=== PATIENT | female | born 1955 | race Caucasian/White ===

== ENCOUNTER → 2017-12-29 | Outpatient (CLI) | payer OTHER ==
[~2017-12-29] MED LIST: APIX2.5T PO; CYCL10TA PO; DICL75TA PO; FOLI800T PO; HYDR-3580 PO; METH2.5T PO; MILK500C2 PO; MULT-65 PO; OMEP20TA93 PO; VITA2000 PO
[2017-12-29 09:24] LABS: AUTOMATED NEUTROPHIL # 4.2 TH/MM3 (1.8-7.7); BASOPHIL % 0.5 % (0.0-2.0); EOSINOPHIL # 0.1 TH/MM3 (0-0.4); EOSINOPHIL % 1.9 % (0.0-4.0); HEMATOCRIT 43.9 % (35.0-46.0); HEMOGLOBIN 14.7 GM/DL (11.6-15.3); LYMPH % 23.6 % (9.0-44.0); LYMPHOCYTE # 1.5 TH/MM3 (1.0-4.8); MEAN CELL VOLUME 102.5 FL (80.0-100.0); MEAN CORPUSCULAR HEMOGLOBIN 34.3 PG (27.0-34.0); MEAN CORPUSCULAR HGB CONC 33.4 % (32.0-36.0); MEAN PLATELET VOLUME 8.3 FL (7.0-11.0); MONO % 7.4 % (0.0-8.0); MONOCYTE # 0.5 TH/MM3 (0-0.9); NEUT % 66.6 % (16.0-70.0); PLATELET COUNT 241 TH/MM3 (150-450); RED BLOOD COUNT 4.28 MIL/MM3 (4.00-5.30); RED CELL DISTRIBUTION WIDTH 14.8 % (11.6-17.2); WHITE BLOOD COUNT 6.4 TH/MM3 (4.0-11.0)
[2017-12-29 09:39] LABS: BILIRUBIN, URINE NEG (NEG); BLOOD, URINE NEG (NEG); GLUCOSE,URINE NEG (NEG); KETONE, URINE NEG (NEG); NITRITE,URINE NEG (NEG); PH, URINE 5.5 (5.0-8.5); SQUAMOUS EPITHELIAL CELL URINE 1 /hpf (0-5); URINE COLOR LIGHT-YELLOW (YELLW/STRAW); URINE LEUKOCYTE ESTERASE MOD (NEG); WHITE BLOOD CELL CLUMPS RARE
[2017-12-29 09:46] LABS: ALBUMIN 3.9 GM/DL (3.4-5.0); AST (GOT) 23 U/L (15-37); BICARBONATE 26.6 MEQ/L (21.0-32.0); BLOOD UREA NITROGEN 12 MG/DL (7-18); CALCIUM 9.1 MG/DL (8.5-10.1); CHLORIDE 103 MEQ/L (98-107); GLOMERULAR FILTRATION RATE 72 ML/MIN (>89); GLUCOSE,FASTING 90 MG/DL (74-99); SODIUM (NA) 138 MEQ/L (136-145)
[2017-12-29 09:47] LABS: ALT (GPT) 38 U/L (10-53)
[2017-12-29 09:49] LABS: ALKALINE PHOSPHATASE 81 U/L (45-117); TOTAL BILIRUBIN ADULT 0.6 MG/DL (0.2-1.0); TOTAL PROTEIN 7.4 GM/DL (6.4-8.2)
--- NOTE | 2017-12-30 16:17 | EKG ---
Date Performed: 12/29/2017 Time Performed: 08:29:19 PTAGE: 62 years EKG: Sinus rhythm WITH SINUS ARRHYTHMIA NORMAL ECG NO PREVIOUS TRACING DOCTOR: Vikash Mohan Interpretating Date/Time 12/30/2017 16:15:40
== END ==
LOC: CPRE 08:08
PROVIDERS: ATTEND Surgery
DX: Z01.810 Encounter for preprocedural cardiovascular examination (principal); Z01.812 Encounter for preprocedural laboratory examination; M79.609 Pain in unspecified limb; R82.90 Unspecified abnormal findings in urine
CPT/HCPCS: 36415; 80053; 81001; 85025; 85610; 85730; 87086; 93005

== ENCOUNTER 2018-01-05 05:38 | Observation (INO) | payer OTHER ==
--- NOTE | 2017-12-31 14:48 | MH ---
cc: Darleen Reyes MD DATE OF ADMISSION: 01/05/2018 ADMITTING DIAGNOSIS: Osteoarthritic degeneration, right knee. REASON FOR ADMISSION: Now being admitted for right total knee arthroplasty. HISTORY OF PRESENT ILLNESS: This pleasant 62-year-old female is being admitted today for right total knee arthroplasty due to severe painful osteoarthritic degeneration, right knee. OTHER PAST HISTORY/MEDICATIONS: She has a history of sciatica and back pain, rheumatoid arthritis for which she takes methotrexate. She was taking diclofenac, stopped before surgery, also Folic acid 1 mg a day. PREVIOUS SURGERIES: , tonsillectomy. REVIEW OF SYSTEMS: Noncontributory. FAMILY HISTORY: Noncontributory. SOCIAL HISTORY: She does smoke cigarettes and drinks occasional alcohol. ALLERGIES: NO KNOWN ALLERGIES. PHYSICAL EXAMINATION: GENERAL: I find a 62-year-old female, well-developed, well-nourished, oriented x3, complaining of pain in her right knee. VITAL SIGNS: Blood pressure 140/82, pulse 90 and regular, respirations 16, temperature 98.1, pulse oximetry 98% on room air. HEENT: Eyes: PERRLA, EOMI. Ears, nose and mouth: Clear. NECK: Supple. LUNGS: Clear. HEART: Regular rate. ABDOMEN: Soft, positive bowel sounds, nontender. EXTREMITIES: Reveal her right knee to be tender with crepitus on range of motion. Neurovascularly intact to her toes. IMPRESSION AT THIS TIME; Severe painful osteoarthritic degeneration, right knee. PLAN: Admission right total knee arthroplasty today. The patient was given prescription for postop pain anticoagulation control in the office. She understands she is to use Hibiclens scrub and Bactroban preoperatively. Plans on going to a rehab center after surgical stay in the hospital. MD NEVIN Nair/SAMANTHA , 02:27 PM , 02:45 PM
[~2018-01-05] VITALS: Ht 166.4 cm; Wt 94.5 kg
[~2018-01-05 05:38] MED LIST changes: -APIX2.5T PO; -CYCL10TA PO; -HYDR-3580 PO
[2018-01-05] MEDS ORDERED: BUPIVACAINE LIPOSOME PF 1.3% 20 ML VIAL ONE (06:10)
[2018-01-05] MEDS ORDERED: MIDAZOLAM HCL 5 MG/5 ML VIAL ONE (06:11)
[2018-01-05] MEDS ORDERED: LIDOCAINE HCL 1% PF 5 ML AMPULE ONE (06:12)
[2018-01-05] MEDS ORDERED: POVIDONE IODINE 5% (ANTISEPSIS KIT) 4 APPLICATIONS EACH NARE PRN (06:15)
[2018-01-05] MEDS ORDERED: CHLORHEXIDINE GLUCONATE 2 % 1 PACK (2 CLOTHS) TOPICAL PRN (06:15)
[2018-01-05] MEDS ORDERED: METOPROLOL TARTRATE 25 MG TAB PO PRN (06:15)
[2018-01-05] MEDS ORDERED: LACTATED RINGER'S 1000 ML IV PRN (06:15)
[2018-01-05] MEDS ORDERED: SODIUM CHLORID 0.9% 500 ML IV PRN (06:15)
[2018-01-05] MEDS ORDERED: VANCOMYCIN 1000 MG/NS 250 ML (for <70 kg) IV SCH ×2 (06:30)
[2018-01-05] MEDS ORDERED: CHLORHEXIDINE GLUCONATE 4% SOLN 120 ML BTL TOPICAL SCH (06:30)
[2018-01-05] MEDS ORDERED: VANCOMYCIN 1 GM/200 ML INJ 200 ML IV SCH (06:30)
[2018-01-05] MEDS ORDERED: CEFAZOLIN INJ 2,000 MG in SODIUM CHLORIDE 0.9% INJ 100 ML IV SCH (06:30)
[2018-01-05] MEDS ORDERED: ceFAZolin INJ 1,000 MG VIAL ONE (06:32)
[2018-01-05] MEDS ORDERED: ceFAZolin 2 GM PREMIX 50 ML ONE (06:35)
[2018-01-05 06:53] VITALS: PULSE 82
[2018-01-05] MEDS ORDERED: BUPIVACAINE PF 0.75% DEX-WATER INJ 2 ML AMP ONE (07:10)
[2018-01-05] MEDS ORDERED: SODIUM CHLORIDE 0.9% IV SCH ×2 (07:30→10:30)
[2018-01-05] MEDS ORDERED: TRANEXAMIC ACID IV SCH ×2 (07:30→10:30)
[2018-01-05] MEDS ORDERED: NALOXONE HCL 0.4 MG/ML AMP IV PUSH PRN (07:45)
[2018-01-05] MEDS ORDERED: diphenhydrAMINE HCL 50 MG/ML VIAL IV PUSH PRN (07:45)
[2018-01-05] MEDS ORDERED: Post-op Orders (for Pharmacy) XX ONE (07:45)
[2018-01-05] MEDS ORDERED: ACETAMINOPHEN/HYDROcodone 325 MG/7.5 MG TAB PO PRN (07:45)
[2018-01-05] MEDS ORDERED: ONDANSETRON HCL 4 MG/2 ML VIAL IVP PRN (07:45)
[2018-01-05] MEDS ORDERED: ACETAMINOPHEN 325 MG TAB PO PRN (07:45)
[2018-01-05] MEDS ORDERED: TRANEXAMIC ACID INJ 0 MG in SODIUM CHLORIDE 0.9% INJ 100 ML IV SCH (07:45)
--- NOTE | 2018-01-05 07:45 | HHI.FF ---
Face to Face Verification Diagnosis: (1) Status post total right knee replacement Physical Therapy Gait training Knee: Total knee, Protocol: Right, Gait training, Full weight bearing Canvas Knee Splint: When in bed & 2 pillows btw thighs Nursing RN: 3 days/week x 2 weeks Nursing: Dressing changes Dressing Changes: Daily dressing change, 4x4s, Gauze, Paper tape I have seen patient Federica Vail on 01/05/18. My clinical findings support the need for the requested home health care services because: Limited ability to care for self High risk of falls I certify that my clinical findings support that this patient is homebound because: Unsteady gait/balance Darleen Reyes MD Jan 05, 2018 07:45
[2018-01-05] MEDS ORDERED: CPMMACHINE (07:47)
[2018-01-05] MEDS ORDERED: WALKER WHEELS/F1 MIS (07:47)
[2018-01-05] MEDS ORDERED: ADJUSTABLE COMM1 MIS (07:47)
[2018-01-05] MEDS ORDERED: BUPIVACAINE LIPOSO PF 1.3% INJ 20 ML, BUPIVACAINE PF 0.25% INJ 20 ML in SODIUM CHLORIDE... P-ARTICULR SCH (08:00)
[2018-01-05] MEDS ORDERED: PROPOFOL 500 MG/50 ML INJ 50 ML ONE (08:47)
[2018-01-05] MEDS ORDERED: NON-FORMULARY DRUG (Multiple Vitamin (Multi-Vitamin Daily) 1 TAB) PO SCH (09:00)
[2018-01-05] MEDS ORDERED: MILK THISTLE PO SCH (09:00)
[2018-01-05] MEDS ORDERED: RESP: ALBUTEROL CONC 2.5 MG/0.5 ML NEB ONE (09:29)
[2018-01-05] MEDS: PANTOPRAZOLE SOD 20 MG DELAYED RELEASE TAB PO SCH (10:00)
[2018-01-05] MEDS: FOLIC ACID 1 MG TAB PO SCH (10:00)
[2018-01-05] MEDS: CHOLECALCIFEROL (VIT D3) 1000 UNIT TAB PO SCH (10:00)
[2018-01-05] MEDS: LACTATED RINGER'S 1000 ML INJ 1,000 ML IV SCH ×2 (10:58→20:17)
--- NOTE | 2018-01-05 11:26 | RADRPT ---
EXAM DATE/TIME: 01/05/2018 10:50 [facility] COMPARISON: No previous studies available for comparison. INDICATIONS : Post op right knee replacement MEDICAL HISTORY : None. SURGICAL HISTORY : right knee replaced ENCOUNTER: Initial ACUITY: 1 day PAIN SCORE: 0/10 LOCATION: Right knee FINDINGS: Two view examination of the right knee demonstrates postsurgical changes following total knee replace ment. Prosthetic components are well-seated in satisfactory alignment. There is no subacute fracture. CONCLUSION: Satisfactory postop appearance of the right knee following joint replacement. aLmin Justice MD on January 05, 2018 at 11:22 Board Certified Radiologist. This report was verified electronically.
--- NOTE | 2018-01-05 11:58 | MP ---
cc: Darleen Reyes MD DATE OF OPERATION: 01/05/2018 PREOPERATIVE DIAGNOSIS: Osteoarthritic degeneration, right knee. POSTOPERATIVE DIAGNOSIS: Osteoarthritic degeneration, right knee. SURGERY PERFORMED: Right total knee arthroplasty using Consensus knee system, size 3 femur, 2 tibia, 1 patella, and 16 insert with 2 batches of DePuy cement. SURGEON: Darleen Reyes MD MICROECONOMICS PROFESSOR: LULI Perdomo ANESTHESIA: . PROCEDURE IN DETAIL After successful induction of anesthesia, the patient is placed on the operating room table in the supine position. The knee is prepped and draped in the usual manner. A tourniquet is inflated at the upper thigh and set to 300 mmHg pressure after exsanguination of the lower extremity. A longitudinal incision is made extending from 3 inches proximal to the superior pole of the patella, across the patella in longitudinal fashion, and down past the insertion of the tibial tubercle into the proximal tibia. The incision is carried down through subcutaneous tissue along the medial aspect of the patella and retinaculum, down through the capsule to expose the knee joint. The patella and patellar tendon are freed up enough to allow the patella to be inverted and retracted off the lateral side of the knee joint. The knee joint is left exposed. Small osteophytes are removed. All soft tissue is removed to allow proper position of the femoral and tibial cutting jig guide. The first femoral jig is then inserted along the distal end of the femur after first measuring to decide whether this is a small, medium, or large component. The notch is then drilled and the tibial cutting guide inserted into the femoral cutting guide, along with the ankle brace to allow for proper measurement of the tibial cutting surface that needed to be resected. Pins are inserted into the tibial cutting jig and femoral cutting jig to hold them in place. An oscillating saw is then used to resect the surface of the tibia. The surface of the tibia is then completely removed using sharp and blunt dissection. The anterior and posterior cuts of the femur are then made as well using an oscillating saw through the cutting guide. All guides are then removed and the varus/valgus angulation cutting guide applied to the femur for proper measurement of the proper amount of valgus. The anterior cutting guide for the femur is then inserted at the anterior femoral cuts made. Next, the first block trial is inserted into the femur to allow for proper condyle drill holes to be made which are then made followed by removal of the bone between the condyles using an oscillating saw as well as the bone removed at the most posterior surface of the condyle. After this, this guide is removed and the chamfer cuts made using the chamfer cutting guide from both anterior and posterior. Next, the femoral trial is then inserted, the tibial surface reflected anterior to expose the tibial surface and a tibial stem guide is inserted after first measuring for a standard, standard plus, large, or large plus surface to be used. After the stem is impacted the trial tibial surface is applied followed by the trial meniscal components. After full range of motion is found with the appropriate length meniscal components varying the patella is prepared by resecting the posterior aspect of the patella using an oscillating saw, inserting a trial. The trial is then removed and the cruciate cutting guide applied using the bur to cut the cruciate cuts. After cruciate cuts are made all trials are removed. The wound is irrigated copiously with antibiotic solution and Water Pick and the actual components inserted into place utilizing the aforementioned components. After the cement has hardened and the components are found to have full range of motion with no instability. Tourniquet deflated, total tourniquet time being 48 minutes at 300 mmHg pressure. Meticulous hemostasis achieved, 60 mL of a combination of Exparel, 0.25% Marcaine, and normal saline inserted around the knee joint for extra pain control. Deep fascia approximated with running #2 Quill. Subcutaneous tissue approximated using interrupted and running 2-0 and 4-0 Monocryl suture. Steri-Strips, sterile dressing, and knee immobilizer. No drain utilized. ESTIMATED BLOOD LOSS: 100 mL Sponge and suture counts correct. Patient tolerated the procedure well and left the operating room in satisfactory condition. LULI Perdomo was present during the entire procedure to include patient positioning and the procedure. The medical necessity of the nurse practitioner account management assistant was indicated in this case due to the surgical complexity of the case itself. During the surgical case, the surgical services director was working the back table while my surgical dressing maker LULI was directly assisting me. MD NEVIN Nair/CAROLYN , 10:04 AM , 10:44 AM
[2018-01-05] MEDS ORDERED: PROPOFOL 200 MG/20 ML AMP IV ONE (12:00)
[2018-01-05] MEDS ORDERED: SODIUM CHLORIDE 0.9% 20 ML VIAL IV ONE (12:00)
[2018-01-05] MEDS ORDERED: PHENYLEPH/NS 1000 MCG/10 ML SYR IV ONE (12:00)
[2018-01-05] MEDS ORDERED: PHENYLEPHRINE HCL 10 MG/ML VIAL IV ONE (12:00)
[2018-01-05] MEDS ORDERED: LIDOCAINE HCL 1% PF 5 ML SYRINGE OTHER ONE (12:00)
[2018-01-05] MEDS ORDERED: *morphine SULFATE 4 MG/ML PERIprocedure ONLY ONE ×2 (12:12→13:01)
[2018-01-05] MEDS: ACETAMINOPHEN/HYDROcodone 325 MG/7.5 MG TAB PO PRN ×3 (13:03→21:45)
[2018-01-05] MEDS ORDERED: DO NOT ADM ANY ANTICOAGULANT DRUGS PRN (13:45)
[2018-01-05] MEDS ORDERED: *MEPERIDINE 25 MG INJ VIAL PERIprocedural Use ONLY ONE (13:48)
--- NOTE | 2018-01-05 14:56 | HHI.PR ---
Immediate Post Op Note Procedure Date: Jan 05, 2018 Pre Op Diagnosis: severe painful osteoarthritic degeneration, right knee. Post Op Diagnosis: osteoarthritic degeneration, right knee. Surgeon: Darleen Reyes MD Baler(s): Imani ROCKWELL Procedure: Right Total Knee Arthroplasty Complications: none Specimen(s) removed: none Estimated blood loss: 150cc Anesthesia: Spinal Drains: None IVF Urinary Output (mLs): 0 (No adams) Tourniquet time (min at mmHg) 46 mins at 300mmHg Patient to: PACU Patient Condition: Good Implant/Devices: SEE IMPLANT LOG (if applicable) Date/Time of Procedure: SEE SURGICAL CARE RECORD Imani Eubanks Jan 05, 2018 14:56
[2018-01-05 20:00] VITALS: BP 139/102; PULSE 84; RESP 18; TEMP 97.5; O2SAT 95
[2018-01-05] MEDS: MORPHINE SULFATE 4 MG/ML INJ IV PUSH PRN ×2 (20:12→23:45)
[2018-01-05] MEDS ORDERED: TEMAZEPAM 15 MG CAP PO PRN (21:00)
[2018-01-05 23:40] VITALS: BP 139/73; PULSE 87; RESP 18; TEMP 98.5; O2SAT 95
[2018-01-06] MEDS: ACETAMINOPHEN/HYDROcodone 325 MG/7.5 MG TAB PO PRN ×5 (03:07→23:30)
[2018-01-06 04:10] VITALS: BP 120/58; PULSE 88; RESP 17; TEMP 99.5; O2SAT 93
[2018-01-06 05:56] LABS: HEMATOCRIT 35.7 % (35.0-46.0); HEMOGLOBIN 12.2 GM/DL (11.6-15.3)
[2018-01-06 08:00] VITALS: BP 159/72; PULSE 103; RESP 18; TEMP 98.8; O2SAT 92
[2018-01-06] MEDS: PANTOPRAZOLE SOD 20 MG DELAYED RELEASE TAB PO SCH (09:30)
[2018-01-06] MEDS: FOLIC ACID 1 MG TAB PO SCH (09:30)
[2018-01-06] MEDS: CHOLECALCIFEROL (VIT D3) 1000 UNIT TAB PO SCH (09:31)
[2018-01-06] MEDS: APIXABAN 2.5 MG TABLET PO SCH ×2 (09:31→20:12)
[2018-01-06] MEDS: LACTATED RINGER'S 1000 ML INJ 1,000 ML IV SCH ×4 (10:00→14:57)
--- NOTE | 2018-01-06 11:35 | PD.ORT.PN ---
Subjective Subjective Remarks Patient is complaining of spasms right thigh above right total knee into her hip. Objective Vitals Vital Signs Date Time Temp Pulse Resp B/P (MAP) Pulse Ox O2 Delivery O2 Flow Rate FiO2 01/06/18 08:00 98.8 103 18 159/72 (101) 92 01/06/18 04:10 99.5 88 17 120/58 (78) 93 01/05/18 23:40 98.5 87 18 139/73 (95) 95 01/05/18 20:00 97.5 84 18 139/102 (114) 95 01/05/18 18:16 97.6 84 20 138/63 (88) 99 Room Air 01/05/18 17:00 81 23 142/69 (93) 99 Room Air 01/05/18 16:00 81 23 153/68 (96) 96 Room Air 01/05/18 14:00 88 23 133/63 (86) 96 Room Air 01/05/18 13:00 93 23 119/60 (79) 96 Room Air 01/05/18 12:30 88 18 106/61 (76) 95 Room Air 01/05/18 12:00 78 22 124/63 (83) 98 Nasal Cannula 2 I/O 01/05/18 01/05/18 01/05/18 01/06/18 01/06/18 01/06/18 07:00 15:00 23:00 07:00 15:00 23:00 Intake Total 1050 ml 480 ml Output Total 3100 ml Balance -2050 ml 480 ml Intake Oral 100 ml 480 ml IV Total 950 ml Output Estimated Blood Loss 100 ml Other 3000 ml # Voids 1 # Bowel Movements 0 Result Diagram: 01/06/18 0446 Imaging Last 48 hours Impressions Knee X-Ray 01/05/18 0737 Signed Impressions: Service Date/Time: Friday, January 05, 2018 10:50 - CONCLUSION: Satisfactory postop appearance of the right knee following joint replacement. Lamin Justice MD Objective Remarks Patient is neurovascularly intact to right lower extremity. She is tender about the right upper thigh into her hip area. Negative Homans sign. Assessment & Plan Ortho Post Op Day #: 1 Problem List: Assessment and Plan Flexeril for muscle spasm continuation of physical therapy and discharged to long-term facility most likely tomorrow. Darleen Reyes MD Jan 06, 2018 11:35
[2018-01-06] MEDS ORDERED: HYDR-3580 PO (11:37)
[2018-01-06 11:38] VITALS: BP 158/69; PULSE 92; RESP 17; TEMP 100.6; O2SAT 94
[2018-01-06] MEDS ORDERED: CYCL10TA PO (11:39)
--- NOTE | 2018-01-06 11:39 | HHI.DS ---
Discharge Summary Admission Date Jan 05, 2018 at 17:18 Discharge Date: Jan 07, 2018 Admitting Diagnosis Osteoarthritic degeneration right knee Diagnosis: (1) Status post total right knee replacement Diagnosis: Principal ICD Codes: Z96.651 - Presence of right artificial knee joint Brief History This is a 62 year old female patient CBC/BMP: 01/06/18 0446 Significant Findings Laboratory Tests Test 01/06/18 04:46 PE at Discharge Patient is neurovascularly intact to right lower extremity. She is tender about the right upper thigh into her hip area. Negative Homans sign. Hospital Course Patient underwent a right total knee arthroplasty on day of admission. She received a course of prophylactic IV antibiotics and within 23 hours started on anticoagulation therapy. She continued to improve remaining afebrile vital signs stable tolerating by mouth pain meds. She was put on muscle relaxants for spasms that she had was discharged on second postoperative day to longterm facility in good condition with instructions for continuation care and follow-up in the office. Pt Condition on Discharge: Good Discharge Disposition: Discharge to SNF Discharge Instructions Diet Instructions: As Tolerated, No Restrictions Activities You Can Perform: Weight Bearing as He, Shower Only-No Bath Activities to Avoid: Bathing, Driving Darleen Reyes MD Jan 06, 2018 11:39
[2018-01-06] MEDS ORDERED: CYCLOBENZAPRINE HCL 10 MG TAB PO ONE (12:00)
[2018-01-06] MEDS ORDERED: APIX2.5T PO (15:21)
[2018-01-06 16:00] VITALS: BP 153/69; PULSE 83; RESP 18; TEMP 99.1; O2SAT 97
[2018-01-06] MEDS ORDERED: CYCLOBENZAPRINE HCL 10 MG TAB PO PRN (20:00)
[2018-01-06] MEDS: MULTIVITAMINS/MINERALS THERAPEUTIC TAB PO SCH (20:12)
[2018-01-06] MEDS: DOCUSATE SODIUM 100 MG CAP PO SCH (20:13)
[2018-01-06 20:25] VITALS: BP 139/79; PULSE 91; RESP 17; TEMP 98.9; O2SAT 93
[2018-01-06 23:30] VITALS: BP 146/70; PULSE 103; RESP 17; TEMP 98.6; O2SAT 97
[2018-01-07 04:15] VITALS: BP 159/74; PULSE 92; RESP 17; TEMP 98.9; O2SAT 96
[2018-01-07] MEDS: ACETAMINOPHEN/HYDROcodone 325 MG/7.5 MG TAB PO PRN ×3 (05:10→13:19)
[2018-01-07 07:22] LABS: HEMATOCRIT 35.6 % (35.0-46.0)
[2018-01-07 07:47] VITALS: BP 122/59; PULSE 94; RESP 18; TEMP 99; O2SAT 95
[2018-01-07] MEDS: FOLIC ACID 1 MG TAB PO SCH (08:12)
[2018-01-07] MEDS: PANTOPRAZOLE SOD 20 MG DELAYED RELEASE TAB PO SCH (08:12)
[2018-01-07] MEDS: DOCUSATE SODIUM 100 MG CAP PO SCH (08:12)
[2018-01-07] MEDS: CHOLECALCIFEROL (VIT D3) 1000 UNIT TAB PO SCH (08:13)
[2018-01-07] MEDS: MULTIVITAMINS/MINERALS THERAPEUTIC TAB PO SCH (08:13)
[2018-01-07] MEDS: APIXABAN 2.5 MG TABLET PO SCH (08:13)
[2018-01-07] MEDS ORDERED: MAGNESIUM HYDROXIDE SUSP 30 ML CUP PO PRN (09:45)
[2018-01-07] MEDS ORDERED: BISACODYL 10 MG SUPP RECTAL PRN (10:00)
[2018-01-07] MEDS ORDERED: BACITRACIN OINT 0.9 GM PKT TOP PRN (10:15)
--- NOTE | 2018-01-07 11:06 | PD.ORT.PN ---
Subjective Subjective Remarks Patient is more comfortable today. Feels Flexeril is helping. Objective Vitals Vital Signs Date Time Temp Pulse Resp B/P (MAP) Pulse Ox O2 Delivery O2 Flow Rate FiO2 01/07/18 07:47 99.0 94 18 122/59 (80) 95 01/07/18 04:15 98.9 92 17 159/74 (102) 96 01/06/18 23:30 98.6 103 17 146/70 (95) 97 01/06/18 20:25 98.9 91 17 139/79 (99) 93 01/06/18 16:00 99.1 83 18 153/69 (97) 97 01/06/18 11:38 100.6 92 17 158/69 (98) 94 I/O 01/06/18 01/06/18 01/06/18 01/07/18 01/07/18 01/07/18 07:00 15:00 23:00 07:00 15:00 23:00 Intake Total 480 ml 960 ml 720 ml Balance 480 ml 960 ml 720 ml Intake Oral 480 ml 960 ml 720 ml # Voids 1 3 2 # Bowel Movements 0 0 0 Result Diagram: 01/07/18 0633 Imaging Last 48 hours Impressions Knee X-Ray 01/05/18 0737 Signed Impressions: Service Date/Time: Friday, January 05, 2018 10:50 - CONCLUSION: Satisfactory postop appearance of the right knee following joint replacement. Lamin Justice MD Objective Remarks Patient is neurovascularly intact to right lower extremity. She is tender about the right upper thigh into her hip area. Negative Homans sign. Assessment & Plan Ortho Post Op Day #: 2 Problem List: (1) Status post total right knee replacement ICD Codes: Z96.651 - Presence of right artificial knee joint Assessment and Plan Continue with Flexeril for muscle spasm continuation of physical therapy [facility]. Darleen Reyes MD Jan 07, 2018 11:06
[2018-01-07 12:00] VITALS: BP 136/75; PULSE 100; RESP 18; TEMP 98.1; O2SAT 94
== END 2018-01-07 14:04 ==
LOC: HSDC 05:38 → HSDI 17:18 → N06A 18:28
PROVIDERS: ADMIT Surgery; ATTEND Surgery
DX: M17.11 Unilateral primary osteoarthritis, right knee (principal); M06.9 Rheumatoid arthritis, unspecified; M54.30 Sciatica, unspecified side; F17.210 Nicotine dependence, cigarettes, uncomplicated; E66.9 Obesity, unspecified
CPT/HCPCS: 00400; 27447; 73560; 85014; 85018; 86850; 86900; 86901; 94150; 96374; 96375; 96376; 97110; 97116; 97150; 97162; 97167; 97535; C1776; C9290; G0378; J0690; J2175; J2250; J2270; J2370; J3370; J7120; J7611; L1830